=== PATIENT | female | born 1960 | race Caucasian/White ===

== ENCOUNTER 2019-01-29 11:06 | Emergency (ER) | payer SELFPAY ==
[~2019-01-29] VITALS: Ht 157.5 cm; Wt 98.4 kg
[2019-01-29 11:10] VITALS: BP 152/99
--- NOTE | 2019-01-29 12:05 | NUR ---
Patient discharged to home in stable condition. Written and verbal after care instructions given. Patient verbalizes understanding of instruction. Ambulatory Stable
== END 2019-01-29 12:04 | disposition home or self-care (01) ==
LOC: ER 11:06
DX: F41.9 Anxiety disorder, unspecified (principal); Z90.711 Acquired absence of uterus with remaining cervical stump